=== PATIENT | female | born 1980 | race Caucasian/White ===

== ENCOUNTER 2016-05-30 07:44 | Emergency (ER) | payer BC ==
[~2016-05-30] VITALS: Wt 79.5 kg
[~2016-05-30 07:44] MED LIST: ALBU8.5H3 INH; PRED50TA PO
--- NOTE | 2016-07-09 13:11 | ERA ---
ER Documentation Chief Complaint Date/Time DATE: 07/09/16 TIME: 13:05 Chief Complaint neck swelling for the past 10- days, no trauma. no stridor. no sob HPI 36-year-old female with a chief complaint of neck swelling. Patient's next swelling has persisted over the past couple months and is nontender. Patient denies any difficulty dyspnea, wheezing, dysphasia, no odontophagia, pharyngitis , fever, changes in vision. Has no other complaints at this time. Denies any new medications, history of cancer, intolerance to heat or cold or changes in hearing. Denies any present symptoms. ROS All systems reviewed and are negative except as per history of present illness. Medications Home Meds Active Scripts Prednisone* (Prednisone*) 50 Mg Tablet, 50 MG PO DAILY, #5 TAB Prov:DIVINA DANIEL NP 01/31/16 Reported Medications Albuterol Sulfate* (Proair HFA*) 8.5 Gm Hfa.aer.ad, 2 PUFF INH Q6, #1 INHALER 01/30/16 Allergies Allergies: Coded Allergies: No Known Allergy (Unverified , 01/30/16) PMhx/Soc Anesthesia Reaction: No Hx Neurological Disorder: No Hx Respiratory Disorders: Yes (ASTHMA) Hx Cardiac Disorders: No Hx Psychiatric Problems: No Hx Miscellaneous Medical Probl: No Hx Alcohol Use: No Hx Substance Use: No Hx Tobacco Use: No Physical Exam Physical Exam Const: 36-year-old female is well-appearing presenting with daughter. Head: Atraumatic Eyes: Normal Conjunctiva ENT: Normal External Ears, Nose and Mouth. Neck: Palpable smooth goiter bilateral. Full range of motion..~ No meningismus. Resp: Clear to auscultation bilaterally Cardio: Regular rate and rhythm, no murmurs Abd: Soft, non tender, non distended. Normal bowel sounds Skin: No petechiae or rashes Back: No midline or flank tenderness Ext: No cyanosis, or edema Neur: Awake and alert Psych: Normal Mood and Affect Procedures/MDM Patient is a 36-year-old well-appearing obese female presenting with daughter with a chief complaint of neck swelling. Patient's physical exam is most consistent with a goiter. Neck is nontender and there is no cervical lymphadenopathy. Patient does not have any constitutional symptoms including fever. Patient's ophthalmology has not changed at this time. Abdomen evaluated because of swelling is not going away. Have educated the patient on thyroid pathologies and recommended that she follow-up with her primary care provider in the next 1-3 days. Patient will be given return precautions. The patient is stable at this time and has no symptoms that concern me for thyrotoxicosis. Departure Diagnosis: Primary Impression: Goiter Condition: Stable Additional Instructions: Follow up with primary care provider for a more formal evaluation. Return to the emergency department if symptoms develop. ROXANNE WAY PA-C Jul 09, 2016 13:11
== END 2016-05-30 09:12 | disposition home or self-care (01) ==
LOC: FTE 07:44
DX: E04.9 Nontoxic goiter, unspecified (principal); J45.909 Unspecified asthma, uncomplicated
CPT/HCPCS: 99282

== ENCOUNTER 2018-07-01 10:34 | Emergency (ER) | payer BC ==
[~2018-07-01] VITALS: Ht 160 cm; Wt 64.0 kg
[~2018-07-01 10:34] MED LIST changes: -ALBU8.5H3 INH; +ALBU8.5H8 INH
[2018-07-01 10:36] VITALS: Ht 160 cm; Wt 64.0 kg
[2018-07-01] MEDS ORDERED: ACETAMINOPHEN 500 MG TAB PO STA (10:55)
[2018-07-01] MEDS ORDERED: ONDANSETRON (ODT) 4 MG TAB ODT STA (10:55)
[2018-07-01] MEDS ORDERED: CEPH250S33 PO (11:36)
[2018-07-01] MEDS ORDERED: PHEN-538 PO (11:36)
--- NOTE | 2018-07-01 11:40 | ERD ---
ER Documentation Chief Complaint Chief Complaint PAINFUL URINATION SINCE YESTERDAY HPI 38-year-old female presents with dysuria since yesterday. She vomited once this morning nonbilious nonbloody. She denies . Denies bleeding or discharge. She denies abdominal pain, fevers, flank pain. Patient has a hi story of UTI and symptoms are similar to previous. ROS All systems reviewed and are negative except as per history of present illness. Medications Home Meds Active Scripts Phenazopyridine Hcl* (Pyridium*) 200 Mg Tab, 200 MG PO TID PRN for URINARY PAIN, #6 TAB Prov:SIL BETH MD 07/01/18 Cephalexin* (Cephalexin* Susp) 250 Mg/5 Ml Susp.recon, 250 MG PO Q6 for 5 Days, #1 BOTTLE Prov:SIL BETH MD 07/01/18 Prednisone* (Prednisone*) 50 Mg Tablet, 50 MG PO DAILY, #5 TAB Prov:DIVINA DANIEL NP 01/31/16 Reported Medications Albuterol Sulfate* (Proair HFA*) 8.5 Gm Hfa.aer.ad, 2 PUFF INH Q6, #1 INHALER 01/30/16 Allergies Allergies: Coded Allergies: No Known Allergy (Unverified , 01/30/16) PMhx/Soc Anesthesia Reaction: No Hx Neurological Disorder: No Hx Respiratory Disorders: Yes (ASTHMA) Hx Cardiac Disorders: No Hx Psychiatric Problems: No Hx Miscellaneous Medical Probl: No Hx Alcohol Use: No Hx Substance Use: No Hx Tobacco Use: No Physical Exam Vitals Vital Signs Date Temp Pulse Resp B/P (MAP) Pulse Ox O2 O2 Flow FiO2 Time Delivery Rate 07/01/18 98.3 99 19 154/74 99 10:36 (100) Physical Exam Const: No acute distress Head: Atraumatic Eyes: Normal Conjunctiva ENT: Normal External Ears, Nose and Mouth. Neck: Full range of motion. No meningismus. Resp: Clear to auscultation bilaterally Cardio: Regular rate and rhythm, no murmurs Abd: Soft, non tender, non distended. Normal bowel sounds Skin: No petechiae or rashes Back: No midline or flank tenderness Ext: No cyanosis, or edema Neur: Awake and alert Psych: Normal Mood and Affect Results 24 hrs Laboratory Tests Test 07/01/18 11:08 07/01/18 11:10 POC Beta HCG, Qualitative NEGATIVE Urine Color YELLOW Urine Clarity SLIGHTLY CLOUDY Urine pH 7.0 Urine Specific [place] 1.021 Urine Ketones NEGATIVE mg/dL Urine Nitrite NEGATIVE mg/dL Urine Bilirubin NEGATIVE mg/dL Urine Urobilinogen NEGATIVE mg/dL Urine Leukocyte Esterase NEGATIVE Alem/ul Urine Microscopic RBC 0 /HPF Urine Microscopic WBC 6 /HPF Urine Squamous Epithelial Cells MANY /HPF Urine Mucus FEW /HPF Urine Hemoglobin NEGATIVE mg/dL Urine Glucose NEGATIVE mg/dL Urine Total Protein NEGATIVE mg/dl Current Medications Medications Dose Sig/Lalo Start Time Status Last (Trade) Ordered Route PRN Stop Time Admin Dose Reason Admin Ondansetron 8 mg ONCE STAT 07/01/18 DC 07/01/18 HCl (Zofran ODT 10:55 11:15 Odt) 07/01/18 10:57 500 mg ONCE STAT 07/01/18 DC 07/01/18 Acetaminophen PO 10:55 11:15 (Tylenol 07/01/18 10:57 Tab) Cephalexin 500 mg ONCE ONCE 07/01/18 (Keflex) PO 12:00 07/01/18 12:01 Procedures/MDM Patient given Zofran. Urine shows white blood cells and no leukocyte esterase.. HCG negative. Patient given Keflex for findings suggestive of uncomplicated UTI.. She had no vomiting through the ER course and had a benign abdomen on serial exam without concerns for surgical abdomen, pyelonephritis, acute abdomen. Doubt tubo-ovarian abscess patient symptoms are minimal. Patient will be treated with Keflex, instructed for fluids, Pyridium, primary care follow-up and return precautions. The patient was stable with no new complaints during the ER course. Clinically, there is no current evidence to suggest meningitis, sepsis, acute abdomen, pneumonia, stroke, acute coronary syndrome, pulmonary embolism, aortic dissection or any other emergent condition appearing to require further evaluation or hospitalization. Patient counseled regarding my diagnostic impression and care plan. Prior to discharge all questions answered. Pt agrees with treatment plan and understands strict return precautions. Pt is instructed to follow up with primary care provider within 24-48 hours. Precautionary instructions provided including instructions to return to the ER if not improving or for any worsening or changing symptoms or concerns. The patient's blood pressure was elevated (>120/80) but appears stable without evidence of hypertension emergency or urgency. The patient was counseled about the risks of hypertension and urged to pursue outpatient monitoring and therapy within a week with their primary care physician. I discussed the findings with the patient. I advised the patient to follow-up with the primary physician in about 1-2 days, sooner if needed and return if any concern. Departure Diagnosis: Primary Impression: Genitourinary symptoms Condition: Stable Patient Instructions: Hypertension, To Be Confirmed, Urinary Retention, Female Referrals: LEVON CORTES (PCP) Additional Instructions: shemar arzola. Cheque otro vez con zendejas doctor primario en el proximo arnold or regresa para mas o nueva simptomas. SIL BETH MD Jul 01, 2018 11:40
[2018-07-01 11:52] VITALS: BP 132/71; PULSE 87; RESP 18
[2018-07-01] MEDS ORDERED: CEPHALEXIN 500 MG CAP PO ONE (12:00)
== END 2018-07-01 11:54 | disposition home or self-care (01) ==
LOC: FTE 10:34
DX: R30.0 Dysuria (principal); J45.909 Unspecified asthma, uncomplicated; R11.10 Vomiting, unspecified
CPT/HCPCS: 81001; 81025; Z7502; Z7610; 81003; 99283